=== PATIENT | male | born 2005 | race American Indian/Alaskan Native ===

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

== ENCOUNTER 2025-01-10 11:15 | Outpatient (CLI) | payer MEDICAID, SELFPAY | END 2025-01-10 11:16 | disposition home or self-care (01) | LOC: NFLDREF 01-15 13:21 | PROVIDERS: PCP Physician Assistant Medical; Referring Provider Physician Assistant Medical; Visit Provider Internal Medicine Nephrology | DX: N02.B9 Other recurrent and persistent immunoglobulin A nephropathy (principal); N05.8 Unspecified nephritic syndrome with other morphologic changes; E55.9 Vitamin D deficiency, unspecified; E03.8 Other specified hypothyroidism; R79.89 Other specified abnormal findings of blood chemistry | CPT/HCPCS: 80061; 80069; 82043; 82570; 83970; 84550; 86355; 86356; 87086 ==

== ENCOUNTER 2025-01-11 11:00 | Outpatient (CLI) | payer MEDICAID, SELFPAY | END 2025-01-11 11:01 | disposition home or self-care (01) | LOC: NFLDREF 01-16 15:40 | PROVIDERS: PCP Physician Assistant Medical; Referring Provider Physician Assistant Medical; Visit Provider Internal Medicine Nephrology | DX: N02.B9 Other recurrent and persistent immunoglobulin A nephropathy (principal); N05.8 Unspecified nephritic syndrome with other morphologic changes | CPT/HCPCS: 82570; 84156 ==

== ENCOUNTER 2025-03-08 12:05 | Outpatient (CLI) | payer MEDICAID, SELFPAY | END 2025-03-08 12:06 | disposition home or self-care (01) | LOC: NFLDREF 03-12 11:03 | PROVIDERS: PCP Physician Assistant Medical; Referring Provider Physician Assistant Medical; Visit Provider Internal Medicine Nephrology | DX: N05.8 Unspecified nephritic syndrome with other morphologic changes (principal); I10 Essential (primary) hypertension | CPT/HCPCS: 80061; 80069; 82043; 82570; 84156; 84550; 86355; 86356; 87086 ==

== ENCOUNTER 2025-04-27 13:25 | Outpatient (CLI) | payer MEDICAID, SELFPAY | END 2025-04-27 13:26 | disposition home or self-care (01) | LOC: NFLDREF 05-03 02:12 | PROVIDERS: PCP Physician Assistant Medical; Referring Provider Physician Assistant Medical; Visit Provider Internal Medicine Nephrology | DX: I12.9 Hypertensive chronic kidney disease with stage 1 through stage 4 chronic kidney disease, or unspecified chronic kidney disease (principal); N18.9 Chronic kidney disease, unspecified | CPT/HCPCS: 80069; 82043; 82570; 83540; 83550; 84156; 84550; 86140 ==